=== PATIENT | male | born 1950 | race African-American/Black ===

== ENCOUNTER 2017-03-04 15:19 | Emergency (ER) | payer OTHER ==
[2017-03-04 15:23] VITALS: TEMP 98.1; BMI 16.4
--- NOTE | 2017-03-04 16:32 | PDOC ---
History of Present Illness - General Chief Complaint: Respiratory Stated Complaint: COUGH, DEHYDRATED Time Seen by Provider: 03/04/17 16:06 - History of Present Illness Initial Comments: 03/04/17 17:01 The patient is a 66 year old male who denies any PMH who presents for evaluation of cough. The patient reports a 3 month history of intermittent dry cough. He states that over the past week it has worsened and has become productive with associated intermittent headaches and subjective chills prompting his presentation to the ED today for evaluation. He denies any sick contacts, chest pain, nausea, vomiting, abdominal pain, or changes with urination or bowel movements. Past History - Past Medical History Allergies/Adverse Reactions: Allergies Allergy/AdvReac Type Severity Reaction Status Date / Time No Known Allergies Allergy Verified 03/04/17 15:24 Home Medications: Ambulatory Orders Bimatoprost [Lumigan] 1 drop OU HS 06/02/14 Acetazolamide [Diamox -] 250 mg PO DAILY 03/04/17 Azithromycin [Zithromax Tri-Shelton (3 DAYS) -] 500 mg PO DAILY #3 tablet 03/04/17 Bimatoprost [Lumigan] 1 drop OU HS 03/04/17 Anemia: No Asthma: No Cancer: No Cardiac Disorders: No CVA: No COPD: No CHF: No Dementia: No Diabetes: No GI Disorders: No Disorders: No HTN: No Hypercholesterolemia: No Liver Disease: No Seizures: No Thyroid Disease: No Other medical history: GLAUCOMA/CATARACTS - Surgical History Abdominal Surgery: Yes (HERNIA REPAIR X2) Lung Surgery: No - Suicide/Smoking/Psychosocial Hx Smoking History: Never smoked Hx Alcohol Use: No Drug/Substance Use Hx: No Substance Use Type: None Hx Substance Use Treatment: No Review of Systems - Review of Systems Comments:: 03/04/17 17:07 Constitutional: Chills. No fevers, fatigue, malaise HEENT: No Rhinorrhea, nasal congestion, visual changes Cardiovascular: No chest pain, syncope, palpitations, lightheadedness Respiratory: Cough. No SOB, Hemoptysis, Gastrointestinal: No Abdominal pain, Nausea, Vomiting, Constipation, Diarrhea, Melena Genitourinary: No Dysuria, Frequency, Urgency, Hesitancy, Hematuria, Flank pain Musculoskeletal: No Myalgia, arthralgia Skin: No rashes, itching, bruising, pallor Neurologic: Headache. No Dizziness, Numbness, Weakness, or Tingling *Physical Exam - Vital Signs Last Vital Signs Temp Pulse Resp BP Pulse Ox 98.1 F 70 18 115/77 100 03/04/17 15:20 03/04/17 15:20 03/04/17 15:20 03/04/17 15:20 03/04/17 15:20 - Physical Exam Comments: 03/04/17 17:08 General Appearance: Nourished. No Apparent Distress HEENT: EOMI, DARLING. No Pharyngeal Erythema, Tonsillar Exudate, Tonsillar Erythema Neck: No Cervical Lymphadenopathy Respiratory/Chest: Lungs Clear, Normal Breath Sounds. No Crackles, Rales, Rhonchi, Wheezing Cardiovascular: Regular Rhythm, Regular Rate. No Murmur, Gallops, Rubs Gastrointestinal/Abdominal: Normal Bowel Sounds, Soft. No Guarding, Rebound, Tenderness Musculoskeletal: No CVA Tenderness Extremity: Normal Capillary Refill Integumentary: Normal Color, Dry, Warm Neurologic: Fully Oriented, Alert, Normal Mood/Affect, Normal Response, ED Treatment Course - LABORATORY CBC & Chemistry Diagram: 03/04/17 17:30 03/04/17 17:30 Medical Decision Making - Medical Decision Making 03/04/17 17:09 The patient is a 66 year old male who denies any PMH who presents for evaluation of cough. Differential includes but is not limited to: URI, Pneumonia, influenza, metabolic derangement. Given the patient's history of 3 months of cough that has recently become productive, we will obtain a chest plain film to evaluate. The patient is afebrile in the ED here with normal vitals and we will obtain a cbc, cmp for further evaluation. We will also send a flu swab to evaluate for influenza. We will continue to monitor and reassess. 03/04/17 19:08 cbc, cmp are unremarkable. Flu swab is negative. Chest plain film demonstrate no acute infiltrates as discussed with radiology. However, given the patient's long history of cough, we will treat him with a zpak and have him follow up with his primary care provider in 1 week. We discussed the plan with the patient who voiced understanding and is agreeable with the plan. *DC/Admit/Observation/Transfer Diagnosis at time of Disposition: Bronchitis - Discharge Dispostion Disposition: HOME Condition at time of disposition: Good Admit: No - Prescriptions Prescriptions: Azithromycin [Zithromax Tri-Shelton (3 DAYS) -] 500 mg PO DAILY #3 tablet - Patient Instructions Printed Discharge Instructions: DI for Acute Bronchitis Additional Instructions: Please return to the ER if you experience concerning or worsening symptoms including fevers or chills. Please follow up with your primary care provider to discuss your ER visit. We have sent a prescription to your pharmacy for antibiotics. Please take for the next 3 days.
[2017-03-04 17:38] LABS: BASOPHIL 0.4 % (0-2.0); EOSINOPHIL 1.6 % (0-4.5); MCH 27.9 pg (25.7-33.7); MCHC 31.8 g/dl (32.0-35.9); MEAN CELL VOLUME 87.8 fl (80-96); MEAN PLT VOLUME 6.7 fl (7.5-11.1); NEUTROPHILS 66.4 % (42.8-82.8); PLATELET COUNT 252 K/MM3 (134-434); RDW 15.5 % (11.9-15.9)
[2017-03-04 17:58] LABS: ALBUMIN 3.3 g/dl (3.4-5.0); ANION GAP 8 (8-16); BILIRUBIN,TOTAL 0.5 mg/dL (0.2-1.0); CALCIUM 8.4 mg/dL (8.5-10.1); CO2 20 mmol/L (21-32); CREATININE 0.9 mg/dL (0.7-1.3); GLUCOSE,RANDOM 101 mg/dL (74-106); SGOT/AST 16 U/L (15-37); SGPT/ALT 39 U/L (12-78); TOT PROT 8.5 g/dl (6.4-8.2)
[2017-03-04 17:59] LABS: ALK PHOS 103 U/L (45-117)
--- NOTE | 2017-03-04 19:05 | PDOC ---
Attending Attestation - Resident Resident Name: Nader Lux - ED Attending Attestation I have performed the following: I have examined & evaluated the patient, The case was reviewed & discussed with the resident, I agree w/resident's findings & plan, Exceptions are as noted - HPI HPI: 03/04/17 19:04 66 yo male p/w complaint of persistent cough for many weeks - Physicial Exam PE: 03/04/17 19:05 thin 66 yo male prsnts in no acute distress, stable vital signs Head no signs of recent trauma neckj supple lungs no wheezing,no crackles cvs [id number] abd flat,nontender neuro alert and conversant,ambulatory - Medical Decision Making 03/04/17 19:06 labs unremarkable,cxr increased interstitial markings -imp bronchitis/pt will follow up with his PCP
[2017-03-04 19:53] VITALS: BP 120/72; PULSE 68
== END 2017-03-04 19:58 | disposition home or self-care (01) ==
LOC: JER 15:19
DX: J40 Bronchitis, not specified as acute or chronic (principal)
CPT/HCPCS: 36415; 71020-TC; 80053; 85025; 87804; 99282-25

== ENCOUNTER 2018-02-20 17:35 | Emergency (ER) | payer OTHER ==
--- NOTE | 2018-02-20 18:13 | PDOC ---
Rapid Medical Evaluation Chief Complaint: Respiratory Time Seen by Provider: 02/20/18 18:11 Medical Evaluation: Allergies Allergy/AdvReac Type Severity Reaction Status Date / Time No Known Allergies Allergy Verified 03/04/17 15:24 02/20/18 18:11 CC: Cough HPI: Pt is a 67 YO male who has a productive cough x 1-2 weeks as per his daughter. Denies fever. I have performed a brief in- person evaluation of this patient. Pertinent Physical Findings: Skin: Clear Lungs: Clear Heart: RRR Neuro: Alert Psych: Appropriate affect I have ordered: nothing at this time as the patient is afebrile and PE is WNL The patient will proceed to: FTK for further evaluation Discharge Disposition - Diagnosis Viral respiratory illness - Referrals - Patient Instructions - Post Discharge Activity
[2018-02-20 18:14] VITALS: BP 158/99; PULSE 87; TEMP 98.6; BMI 15.6
--- NOTE | 2018-02-20 18:34 | PDOC ---
History of Present Illness - General Chief Complaint: Respiratory Stated Complaint: INFECTION Time Seen by Provider: 02/20/18 18:11 - History of Present Illness Initial Comments: 02/20/18 18:30 67 yo M with h/o bronchiectasis, legal blindness, glaucoma, who p/w cough. Patient reports 1 week of green-yellow productive sputum cough, with absent SOB. Typical cougth at baseline with white, frothy sputum. No identifiable triggers or alleviators. Denies recent sick contacts, or travels. Patient family reports 3 episodes of bronchitis this year. Denies h/o ICU stay. Denies OTC symptom management. Follows with Pulmonology, but recently fired [employer]. Denies duoneb, oxygen requirements, pulmonary hygiene. Patient denies N/V, hemoptysis, PND, Orthopnea, leg swelling/pain, wheezing, F/C , CP, SOB, urinary complaints, abdominal pain, diarrhea, constipation, lightheadedness, weakness, sensory changes. PMHx: as noted above ROS: as noted SHx: Denies tobacco, Etoh, IVDA Allergies: NKDA Past History - Past Medical History Allergies/Adverse Reactions: Allergies Allergy/AdvReac Type Severity Reaction Status Date / Time No Known Allergies Allergy Verified 02/20/18 18:12 Home Medications: Ambulatory Orders Bimatoprost [Lumigan] 1 drop OU HS 06/02/14 Azithromycin [Zithromax Tri-Shelton (3 DAYS) -] 500 mg PO DAILY #3 tablet 03/04/17 Bimatoprost [Lumigan] 1 drop OU HS 03/04/17 acetaZOLAMIDE [Diamox -] 250 mg PO DAILY 03/04/17 Albuterol 2.5/Ipratropium 0.5 [Duoneb -] 1 neb NEB Q4H #3 vial 02/20/18 Methylprednisolone [Medrol Dose Shelton] 4 mg PO ASDIR #21 tablet 02/21/18 levoFLOXacin [Levaquin] 750 mg PO DAILY #6 tab MDD 1 tab 02/21/18 Anemia: No Asthma: No Cancer: No Cardiac Disorders: No CVA: No COPD: No CHF: No Dementia: No Diabetes: No GI Disorders: No Disorders: No HTN: No Hypercholesterolemia: No Liver Disease: No Seizures: No Thyroid Disease: No - Surgical History Abdominal Surgery: Yes (HERNIA REPAIR X2) Lung Surgery: No - Immunization History Immunization Up to Date: Yes - Suicide/Smoking/Psychosocial Hx Smoking History: Never smoked Hx Alcohol Use: No Drug/Substance Use Hx: No Substance Use Type: None Hx Substance Use Treatment: No Review of Systems - Review of Systems Comments:: 02/20/18 18:33 GENERAL/CONSTITUTIONAL: No fever or chills. No weakness. HEAD, EYES, EARS, NOSE AND THROAT: No change in vision. No ear pain or discharge. No sore throat. CARDIOVASCULAR: No chest pain or shortness of breath RESPIRATORY: +cough. No wheezing, or hemoptysis. GASTROINTESTINAL: No nausea, vomiting, diarrhea or constipation. GENITOURINARY: No dysuria, frequency, or change in urination. MUSCULOSKELETAL: No joint or muscle swelling or pain. No neck or back pain. SKIN: No rash NEUROLOGIC: No headache, vertigo, loss of consciousness, or change in strength/ sensation. ENDOCRINE: No increased thirst. No abnormal weight change HEMATOLOGIC/LYMPHATIC: No anemia, easy bleeding, or history of blood clots. ALLERGIC/IMMUNOLOGIC: No hives or skin allergy. *Physical Exam - Vital Signs Last Vital Signs Temp Pulse Resp BP Pulse Ox 98.6 F 87 16 158/99 98 02/20/18 18:12 02/20/18 18:12 02/20/18 18:12 02/20/18 18:12 02/20/18 18:12 - Physical Exam Comments: 02/20/18 18:33 GENERAL: + Cachectic appearing, awake, alert, and fully oriented, in no acute distress HEAD: No signs of trauma, normocephalic, atraumatic EYES: PERRLA, EOMI, sclera anicteric ENT: Hearing grossly normal, nares patent, oropharynx clear without exudates. Moist mucosa NECK: Normal ROM, supple, no lymphadenopathy, JVD, or masses LUNGS: No distress, speaks full sentences,+ Lung sounds diminished at bases. HEART: Regular rate and rhythm, normal S1 and S2, no murmurs, rubs or gallops, peripheral pulses normal and equal bilaterally. EXTREMITIES : Normal inspection, Normal range of motion, no edema. No clubbing or cyanosis. SKIN: Warm, Dry, normal turgor, no rashes or lesions noted ED Treatment Course - LABORATORY CBC & Chemistry Diagram: 02/20/18 19:55 02/20/18 19:55 Medical Decision Making - Medical Decision Making 02/20/18 18:55 67 yo M with h/o bronchiectasis, legal blindness, glaucoma, who p/w cough. VSS , AF. Lungs CTA BL. R/o PNA. Low risk PE Weils criteria. Will consider asthma or COPD. ED Course: CBC, CMP, CT CHEST Duoneb 02/20/18 21:56 CBC: Unremarkable 02/20/18 22:55 Patient advised to f/u with Pulmonology 02/20/18 23:57 Patient and pt. family refuse repeat CMP. CT CHEST: Impression: In comparison to a 2015 CT study interval development of patchy bilateral lower lobe and upper lobe nodular infiltrates is noted. Correlate with follow-up CT. Development of mild bilateral upper lobe bronchiectasis is seen. Interval resolution of an extensive right lower lobe alveolar infiltrate is noted. 02/21/18 00:23 Levaquin PO 750 mg Levaquin, Medrolm duonebs sent to pharm. Patient advised to f/u with pulm. Patient stable for d/c with return precautions. *DC/Admit/Observation/Transfer Diagnosis at time of Disposition: Viral respiratory illness Pneumonia Qualifiers: Pneumonia type: due to unspecified organism Laterality: bilateral Lung location : lower lobe of lung Qualified Code(s): J18.1 - Lobar pneumonia, unspecified organism - Discharge Dispostion Disposition: HOME Decision to Admit order: No - Prescriptions Prescriptions: Albuterol 2.5/Ipratropium 0.5 [Duoneb -] 1 neb NEB Q4H #3 vial levoFLOXacin [Levaquin] 750 mg PO DAILY #6 tab MDD 1 tab Methylprednisolone [Medrol Dose Shelton] 4 mg PO ASDIR #21 tablet - Referrals Referrals: Alberto العلي MD [Staff Physician] - - Patient Instructions Printed Discharge Instructions: DI for Acute Bronchitis Additional Instructions: Please return to the emergency department with any new or worsening symptoms or concerns. Please follow up with your primary care physician within 72 hours. Please take duonebs as needed. Please take Medrol dose shelton as prescribed. Please take Levaquin as prescribed. 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 - Post Discharge Activity - Attestations Physician Attestion: 02/20/18 18:34 I attest to the information provided in this note.
[2018-02-20] MEDS ORDERED: ALBUTEROL SO4 2.5/IPRATROPIUM 0.5 INH SOL 3 ML VIAL.NEB. NEB ONE ×2 (19:14→20:10)
--- NOTE | 2018-02-20 19:47 | PDOC ---
Attending Attestation - HPI HPI: 02/20/18 19:48 The patient is a 67 year old male with a significant past medical history of bronchiectasis, legal blindness, glaucoma, who presents to the ED with a worsening cough. Patient states he has a chronic cough but over the past week he developed green-yellow sputum with cough. Patient states at baseline his cough has white, frothy sputum. Denies shortness of breath. Denies fever or chills. Denies sick contact or resent travel. Denies nausea or vomiting. Denies chest pain. Denies any other symptoms. Documentation prepared by Joce Blair, acting as medical officer for Brielle Trimble DO. - Physicial Exam PE: 02/20/18 19:48 Constitutional: + Cachectic. Awake, alert, oriented. No acute distress. Head: Normocephalic. Atraumatic Eyes: PERRL. EOMI. Conjunctivae are not pale. ENT: Mucous membranes are moist and intact. Posterior pharynx without exudates or erythema. Uvula midline. Neck: Supple. Full ROM. No lymphadenopathy. Cardiovascular: Regular rate. Regular rhythm. S1, S2 regular. Distal pulses are 2+ and symmetric. Pulmonary/Chest: + Diminished at the bases, coughing sputum that is between cream and white in color. No wheezing, rales or rhonchi. Abdominal: Soft and non-distended. There is no tenderness. No rebound, guarding or rigidity. No organomegaly. No palpable masses. Good bowel sounds. Back: No CVA tenderness. Musculoskeletal: No edema. No cyanosis. No clubbing. Full range of motion in all extremities. Nocalf tenderness. Radial/pedal pulses are intact and 2+ bilaterally Skin: Skin is warm and dry. No petechiae. No purpura. Neurological: Alert and oriented to person, place, and time. Cranial nerves II -XII are grossly intact. Normal speech. Strength is grossly symmetric. No sensory deficits. Psychiatric: Good eye contact. Normal interaction, affect and behavior. <Joce Blair - Last Filed: 02/20/18 19:48> - Resident Resident Name: Sedrick Chandler - ED Attending Attestation I have performed the following: I have examined & evaluated the patient, The case was reviewed & discussed with the resident, I agree w/resident's findings & plan, Exceptions are as noted - Medical Decision Making 02/20/18 19:47 I, Dr. Brielle Trimble, DO, attest that this document has been prepared under my direction and personally reviewed by me in its entirety. I further attest, that it accurately reflects all work, treatment, procedures and medical decision -making performed by me. 02/20/18 20:22 a/p: 67yo male with hx of bronchiectasis not on any pulm meds at home presents for worsening cough - productive cream colored sputum x 1 week -cp when coughing -no fevers, no wt loss -+rhinorrhea/sore throat with the cough -diminished bs b/l bases -no tb hx of cf hx -will send labs, ct chest to eval for bronchiectic changes -will give nebs -will monitor and reassess <Brielle Trimble - Last Filed: 02/20/18 21:56> Heart Score/ECG Review - ECG Intrepretation Comment:: 02/20/18 21:56 sinus at 76, nl axis, lvh, no acute st/t wave findings <Brielle Trimble - Last Filed: 02/20/18 21:56>
[2018-02-20 20:32] LABS: BASO % 0.3 % (0-2.0); EOS % 1.3 % (0-4.5); HEMATOCRIT 41.1 % (35.4-49); HEMOGLOBIN 13.1 GM/dL (11.7-16.9); MCH 28.3 pg (25.7-33.7); MCHC 31.8 g/dl (32.0-35.9); MEAN CELL VOLUME 89.3 fl (80-96); MEAN PLT VOLUME 7.2 fl (7.5-11.1); MONO % 9.1 % (3.8-10.2); NEUT % 75.3 % (42.8-82.8); PLATELET COUNT 333 K/MM3 (134-434)
[2018-02-20] MEDS: ALBUTEROL SO4 2.5/IPRATROPIUM 0.5 INH SOL 3 ML VIAL.NEB. NEB SCH ×3 (22:45→23:45)
[2018-02-21] MEDS: ALBUTEROL SO4 2.5/IPRATROPIUM 0.5 INH SOL 3 ML VIAL.NEB. NEB SCH (00:15)
--- NOTE | 2018-02-21 09:18 | EKG ---
Test Reason : Blood Pressure : / mmHG Vent. Rate : 076 BPM Atrial Rate : 076 BPM P-R Int : 160 ms QRS Dur : 086 ms QT Int : 394 ms P-R-T Axes : 052 017 057 degrees QTc Int : 443 ms POOR DATA QUALITY, INTERPRETATION MAY BE ADVERSELY AFFECTED NORMAL SINUS RHYTHM MINIMAL VOLTAGE CRITERIA FOR LVH, MAY BE NORMAL VARIANT WHEN COMPARED WITH ECG OF 02-JUN-2014 21:14, NO SIGNIFICANT CHANGE WAS FOUND Confirmed by MORGAN PAUL MD ([id number]) on 02/21/2018 9:17:51 AM Referred By: Confirmed By:MORGAN PAUL MD
== END 2018-02-21 00:59 | disposition home or self-care (01) ==
LOC: JER 17:35
PROC: 3E0F7GC Introduction of Other Therapeutic Substance into Respiratory Tract, Via Natural or Artificial Opening (ICD-10-PCS; principal; 2018-02-20)
PROC: 3E0F7GC Introduction of Other Therapeutic Substance into Respiratory Tract, Via Natural or Artificial Opening (ICD-10-PCS; 2018-02-20)
PROC: 3E0F7GC Introduction of Other Therapeutic Substance into Respiratory Tract, Via Natural or Artificial Opening (ICD-10-PCS; 2018-02-20)
PROC: 3E0F7GC Introduction of Other Therapeutic Substance into Respiratory Tract, Via Natural or Artificial Opening (ICD-10-PCS; 2018-02-20)
DX: J18.1 Lobar pneumonia, unspecified organism (principal); H54.8 Legal blindness, as defined in USA; Z87.09 Personal history of other diseases of the respiratory system
CPT/HCPCS: 36415; 71250-TC; 85025; 87804; 93005; 93010; 99283-25; J7620

== ENCOUNTER 2018-10-08 20:38 | Emergency (ER) | payer OTHER ==
--- NOTE | 2018-10-08 20:59 | PDOC ---
Rapid Medical Evaluation Time Seen by Provider: 10/08/18 20:57 Medical Evaluation: Allergies Allergy/AdvReac Type Severity Reaction Status Date / Time No Known Allergies Allergy Verified 02/20/18 18:12 10/08/18 20:57 I have performed a brief in-person evaluation of this patient. The patient presents with a chief complaint of: recently had "the laser surgery for a big stone" by Dr. Sims at [facility], pt unable to urinate since 11 am, pt c /o pain 11/26 Pertinent physical exam findings: well appearing, NA I have ordered the following: cerda, UA, UC The patient will proceed to the ED for further evaluation.
[2018-10-08 21:00] VITALS: BP 139/88; PULSE 86; TEMP 98.2; BMI 19.3
--- NOTE | 2018-10-08 22:47 | PDOC ---
History of Present Illness - General Chief Complaint: Urinary Problem Stated Complaint: SURGERY/UNABLE TO URINE Time Seen by Provider: 10/08/18 20:57 - History of Present Illness Initial Comments: 68 yo M with history of left-sided kidney stone s/p laser procedure and BPH presenting with urinary retention. Patient states he last urinated at 11am. Around 12noon, he had laser procedure and was discharged without voiding and has not voided at all. Complaining of abdominal pain. No flank tenderness. His urology office was called and was recommended to present to the ED after trying to sit in a hot bath. Daughter states that the hot bath made his pain worse. Not on any antibiotics. No fevers, chills, chest pain, or shortness of breath. PCP: Dr. Peoples Urology: Dr. Sims Past History - Past Medical History Allergies/Adverse Reactions: Allergies Allergy/AdvReac Type Severity Reaction Status Date / Time No Known Allergies Allergy Verified 10/08/18 20:57 Home Medications: Ambulatory Orders Bimatoprost [Lumigan] 1 drop OU HS 06/02/14 Bimatoprost [Lumigan] 1 drop OU HS 03/04/17 acetaZOLAMIDE [Diamox -] 250 mg PO DAILY 03/04/17 Brimonidine Tartrate/Timolol [Combigan Eye Drops] 5 ml OP DAILY 10/09/18 Montelukast Sodium [Singulair] 10 mg PO DAILY 10/09/18 Netarsudil Mesylate [Rhopressa] 2.5 ml OP DAILY 10/09/18 Anemia: No Asthma: No Cancer: No Cardiac Disorders: No CVA: No COPD: No CHF: No Dementia: No Diabetes: No GI Disorders: No Disorders: No HTN: No Hypercholesterolemia: No Liver Disease: No Seizures: No Thyroid Disease: No Other medical history: blind, bronchiectasis - Surgical History Abdominal Surgery: Yes (HERNIA REPAIR X2) Lung Surgery: No - Immunization History Immunization Up to Date: Yes - Suicide/Smoking/Psychosocial Hx Smoking History: Never smoked Hx Alcohol Use: No Drug/Substance Use Hx: No Substance Use Type: None Hx Substance Use Treatment: No Review of Systems - Review of Systems Comments:: Constitutional: no fever, no chills HEENT: no throat pain, no dysphagia Cardiovascular: no chest pain, no palpitations Respiratory: no cough, no shortness of breath Gastrointestinal: +abdominal pain, no nausea Genitourinary: no dysuria, +retention Musculoskeletal: no myalgia, no arthralgia Skin: no rash, no itching Neurologic: no headache, no weakness *Physical Exam - Vital Signs Last Vital Signs Temp Pulse Resp BP Pulse Ox 98.2 F 86 18 139/88 98 10/08/18 20:58 10/08/18 20:58 10/08/18 20:58 10/08/18 20:58 10/08/18 20:58 - Physical Exam Comments: General: Awake, alert, and fully oriented, in no acute distress Head: No signs of trauma Eyes: EOMI, sclera anicteric ENT: Moist mucus membranes Neck: Normal ROM, supple Lungs: Lungs clear, Normal breath sounds Cardio: Regular rhythm, S1 and S2 present Abdomen: Soft, nontender. No guarding, no rebound, no masses. : Cedra in place with drainage of 1100cc of bloody urine Extremities: Normal range of motion, Distal pulses present SKIN: Warm, Dry, normal turgor Neurologic: Cranial nerves II through XII grossly intact. Normal speech ED Treatment Course - LABORATORY CBC & Chemistry Diagram: 10/09/18 00:20 10/09/18 02:46 Medical Decision Making - Medical Decision Making 68 yo M with history of left-sided kidney stone s/p laser procedure presenting with urinary retention DDX including but not limited to UTI, post-surgical inflammation, BPH, obstruction from blood clot in urethra 10/08/18 23:04 Drained 1150cc of bloody urine, No longer has abdominal pain UA: 3+ protein, 3+ blood, 2+LE, +nitrites, 15.5 WBC, no bacteria No previous positive urine cultures 10/08/18 23:08 Bedside ultrasound without hydronephrosis CBC WBC 10.5 K/mm3 (4.0-10.0) H 10/09/18 00:20 RBC 4.67 M/mm3 (4.00-5.60) 10/09/18 00:20 Hgb 13.2 GM/dL (11.7-16.9) 10/09/18 00:20 Hct 42.5 % (35.4-49) 10/09/18 00:20 MCV 90.9 fl (80-96) 10/09/18 00:20 MCH 28.3 pg (25.7-33.7) 10/09/18 00:20 MCHC 31.1 g/dl (32.0-35.9) L 10/09/18 00:20 RDW 14.8 % (11.9-15.9) 10/09/18 00:20 Plt Count 209 K/MM3 (134-434) D 10/09/18 00:20 MPV 7.2 fl (7.5-11.1) L 10/09/18 00:20 Absolute Neuts (auto) 9.1 K/mm3 (1.5-8.0) H 10/09/18 00:20 Neutrophils % 86.6 % (42.8-82.8) H 10/09/18 00:20 Lymphocytes % 9.1 % (8-40) D 10/09/18 00:20 Monocytes % 3.8 % (3.8-10.2) 10/09/18 00:20 Eosinophils % 0.0 % (0-4.5) D 10/09/18 00:20 Basophils % 0.5 % (0-2.0) 10/09/18 00:20 Nucleated RBC % 0 % (0-0) 10/09/18 00:20 Slight leukocytosis No anemia Pending CMP CMP Sodium 139 mmol/L (136-145) 10/09/18 00:20 Potassium 4.2 mmol/L (3.5-5.1) 10/09/18 00:20 Chloride 113 mmol/L (98-107) H 10/09/18 00:20 Carbon Dioxide 18 mmol/L (21-32) L 10/09/18 00:20 Anion Gap 8 MMOL/L (8-16) 10/09/18 00:20 BUN 25 mg/dL (7-18) H 10/09/18 00:20 Creatinine 1.6 mg/dL (0.55-1.3) H 10/09/18 00:20 Est GFR (CKD-EPI)AfAm 50.55 10/09/18 00:20 Est GFR (CKD-EPI)NonAf 43.62 10/09/18 00:20 Random Glucose 127 mg/dL (74-106) H 10/09/18 00:20 Calcium 8.4 mg/dL (8.5-10.1) L 05/23/19 00:20 Total Bilirubin 1.1 mg/dL (0.2-1) H 10/09/18 00:20 AST 21 U/L (15-37) 10/09/18 00:20 ALT 37 U/L (13-61) 10/09/18 00:20 Alkaline Phosphatase 89 U/L (45-117) 10/09/18 00:20 Total Protein 7.7 g/dl (6.4-8.2) 10/09/18 00:20 Albumin 3.4 g/dl (3.4-5.0) 10/09/18 00:20 10/09/18 01:15 UA still with no bacteria and now with no nitrites. Will follow up urine culture. 1g Rocephin ordered for prophylaxis. Pending repeat BMP 10/09/18 02:55 CMP Sodium 142 mmol/L (136-145) 10/09/18 02:46 Potassium 4.3 mmol/L (3.5-5.1) 10/09/18 02:46 Chloride 118 mmol/L (98-107) H 10/09/18 02:46 Carbon Dioxide 18 mmol/L (21-32) L 10/09/18 02:46 Anion Gap 6 MMOL/L (8-16) L 10/09/18 02:46 BUN 23 mg/dL (7-18) H 10/09/18 02:46 Creatinine 1.3 mg/dL (0.55-1.3) 10/09/18 02:46 Est GFR (CKD-EPI)AfAm 64.98 10/09/18 02:46 Est GFR (CKD-EPI)NonAf 56.06 10/09/18 02:46 Random Glucose 128 mg/dL (74-106) H 10/09/18 02:46 Calcium 8.1 mg/dL (8.5-10.1) L 10/09/18 02:46 Total Bilirubin 1.1 mg/dL (0.2-1) H 10/09/18 00:20 AST 21 U/L (15-37) 10/09/18 00:20 ALT 37 U/L (13-61) 10/09/18 00:20 Alkaline Phosphatase 89 U/L (45-117) 10/09/18 00:20 Total Protein 7.7 g/dl (6.4-8.2) 10/09/18 00:20 Albumin 3.4 g/dl (3.4-5.0) 10/09/18 00:20 Improvement in Cr after 1L NS Will send patient home with leg bag Patient will follow-up with urologist Discharged *DC/Admit/Observation/Transfer Diagnosis at time of Disposition: Urinary retention - Discharge Dispostion Disposition: HOME Condition at time of disposition: Stable - Referrals Referrals: Paolo Peoples [Primary Care Provider] - Billy Sims MD [Non Staff, Medical] - - Patient Instructions Printed Discharge Instructions: How to Care for Your Cerda Catheter -- Male, DI for Urinary Retention in Men Additional Instructions: You came into the ED for urinary retention. We placed a cerda catheter which relieved your abdominal pain. Call your urologist, Dr Sims, tomorrow morning and follow-up with him. Your workup is not complete until you do so. RETURN if: you develop high fevers, chills, persistent vomiting, stop urinating , or any new or concerning symptoms. - Post Discharge Activity
[2018-10-08 22:56] LABS: URINE APPEARANCE CLOUDY; URINE BILIRUBIN 1+ (NEGATIVE); URINE COLOR RED; URINE GLUCOSE (UA) NEGATIVE (NEGATIVE); URINE KETONE NEGATIVE (NEGATIVE); URINE LEUK ESTERASE 2+ (NEGATIVE); URINE NITRITE POSITIVE (NEGATIVE); URINE PROTEIN 3+ (NEGATIVE); URINE UROBILINOGEN 0.2 mg/dL (0.2-1.0)
[2018-10-08 23:02] LABS: URINE BACTERIA 0 /hpf (NEGATIVE); URINE RBC 1614.9 /hpf (0-4); URINE WBC 15.5 /hpf (0-5)
[2018-10-09 00:39] LABS: BASO % 0.5 % (0-2.0); HEMATOCRIT 42.5 % (35.4-49); HEMOGLOBIN 13.2 GM/dL (11.7-16.9); LYMPH % 9.1 % (8-40); MCH 28.3 pg (25.7-33.7); MCHC 31.1 g/dl (32.0-35.9); MEAN CELL VOLUME 90.9 fl (80-96); MEAN PLT VOLUME 7.2 fl (7.5-11.1); MONO % 3.8 % (3.8-10.2); NEUT % 86.6 % (42.8-82.8); PLATELET COUNT 209 K/MM3 (134-434); RBC 4.67 M/mm3 (4.00-5.60); RDW 14.8 % (11.9-15.9); WHITE BLOOD COUNT 10.5 K/mm3 (4.0-10.0)
--- NOTE | 2018-10-09 01:01 | PDOC ---
Documentation entered by Olya Chandler SCRIBE, acting as scribe for Brielle Trimble DO. Brielle Trimble DO: This documentation has been prepared by the Ramesh moncada Daisy, SCRIBE, under my direction and personally reviewed by me in its entirety. I confirm that the documentation accurately reflects all work, treatment, procedures, and medical decision making performed by me. Attending Attestation - Resident Resident Name: MagalysMasha - ED Attending Attestation I have performed the following: I have examined & evaluated the patient, The case was reviewed & discussed with the resident, I agree w/resident's findings & plan - HPI HPI: 10/09/18 00:17 The patient is a 68YOM with a PMH of BPH (not on flomax) and left sided kidney stone s/p 2nd laser procedure at 12PM today at [facility] who presents to the ED for urinary retention since 11AM today. Patient had his laser procedure at noon today and was discharged home without a voiding trial. Patient is Not on anticoagulants. Not currently on antibiotics. Denies dysuria. Denies back pain, abdominal pain, fevers, chills, cp, sob, N/V/D/C. PCP: Dr. Peoples Urology: Dr. Sims - Physicial Exam PE: 10/09/18 00:36 Constitutional: Awake, alert, oriented. No acute distress. Cardiovascular: Regular rate. Regular rhythm. S1, S2 regular. Distal pulses are 2+ and symmetric. Pulmonary/Chest: No evidence of respiratory distress. Clear to auscultation bilaterally No wheezing, rales or rhonchi. Abdominal: Soft and non-distended. There is no tenderness. No rebound, guarding or rigidity. Good bowel sounds. Back: No CVA tenderness. : (+) 1700 cc of blood tinged urine in the urine bag. Musculoskeletal: No edema. Full range of motion in all extremities. No calf tenderness. Skin: Skin is warm and dry. Neurological: Cranial nerves II-XII are grossly intact. - Medical Decision Making 10/09/18 00:53 I, Dr. Brielle Trimble DO, attest that this document has been prepared under my direction and personally reviewed by me in its entirety. I further attest, that it accurately reflects all work, treatment, procedures and medical decision -making performed by me. 10/09/18 00:53 a/p: 68yo male with laser therapy to L sided kidney stone today with urinary retention -cerda placed upon arrival in the ED with drainage of 1700 cc of blood tinged urine -no passage of clots -no fevers, no flank pain today - no recent abx -denies dysuria -will send labs -bedside ultrasound negative for hyro -will restart flomax -will need urology follow up as outpt for cerda removal if labs normal 10/09/18 01:50 mildly elevated cr- will give ivf hydration and repeat labs no bacteria on ua cerda in place h/h stable mildly elevated wbc will continue to monitor and reassess
[2018-10-09 01:16] LABS: ALBUMIN 3.4 g/dl (3.4-5.0); BILIRUBIN,TOTAL 1.1 mg/dL (0.2-1); CALCIUM 8.4 mg/dL (8.5-10.1); CREATININE 1.6 mg/dL (0.55-1.3); POTASSIUM 4.2 mmol/L (3.5-5.1); TOT PROT 7.7 g/dl (6.4-8.2)
[2018-10-09] MEDS ORDERED: SODIUM CHLORIDE 0.9% 1000 ML INFUS.BAG IV ONE (01:20)
[2018-10-09 02:13] LABS: EPI CELLS 7.1 /HPF (0-5/HPF); HYALINE CASTS 3 /lpf (0-8); PH,URINE 7.5 (5.0-8.0); URINE APPEARANCE CLEAR; URINE BACTERIA 0 /hpf (NEGATIVE); URINE BILIRUBIN 1+ (NEGATIVE); URINE COLOR RED; URINE GLUCOSE (UA) NEGATIVE (NEGATIVE); URINE KETONE NEGATIVE (NEGATIVE); URINE LEUK ESTERASE 2+ (NEGATIVE); URINE NITRITE NEGATIVE (NEGATIVE); URINE PROTEIN 2+ (NEGATIVE); URINE UROBILINOGEN 0.2 mg/dL (0.2-1.0); URINE WBC 27 /hpf (0-5)
[2018-10-09 02:15] LABS: YEAST NONE SEEN (NEGATIVE)
[2018-10-09 02:17] LABS: URINE RBC 863 /hpf (0-4)
[2018-10-09] MEDS ORDERED: CEFTRIAXONE 1,000 MG in DEXTROSE 5%-WATER - 50 ML IVPB ONE (02:55)
[2018-10-09 03:44] LABS: CALCIUM 8.1 mg/dL (8.5-10.1); CREATININE 1.3 mg/dL (0.55-1.3); POTASSIUM 4.3 mmol/L (3.5-5.1)
[2018-10-09] MEDS ORDERED: CEFTRIAXONE 1 GM/50 ML BAG ONE (03:46)
== END 2018-10-09 05:20 | disposition home or self-care (01) ==
LOC: JER 20:38
PROC: 0T9B70Z Drainage of Bladder with Drainage Device, Via Natural or Artificial Opening (ICD-10-PCS; principal; 2018-10-08)
PROC: 3E03329 Introduction of Other Anti-infective into Peripheral Vein, Percutaneous Approach (ICD-10-PCS; 2018-10-08)
DX: R33.8 Other retention of urine (principal); Z87.442 Personal history of urinary calculi; Z98.890 Other specified postprocedural states
CPT/HCPCS: 36415; 80048; 80053; 81003; 85025; 87086; 99282-25; J7030